=== PATIENT | male | born 1985 ===

== ENCOUNTER 2016-07-29 22:46 | Emergency (ER) | payer OTHER ==
[2016-07-29 22:53] VITALS: RESP 16
[2016-07-29] MEDS ORDERED: Alum-Mag Hydrox-Simethicone Susp (30 mL) PO STA (23:35)
[2016-07-29] MEDS ORDERED: Alum-Mag Hydrox-Simethicone Susp (30 mL) ONE (23:40)
--- NOTE | 2016-07-29 23:47 | ED PDOC ---
HPI: Abdomen Time Seen by Provider: 07/29/16 23:09 Chief Complaint (Nursing): Abdominal Pain Chief Complaint (Provider): abd pain History Per: Patient History/Exam Limitations: no limitations Onset/Duration Of Symptoms: Days (6) Severity: Moderate Location Of Pain/Discomfort: LUQ (LUQ worse), LLQ Associated Symptoms: Vomiting (x1 on Monday nonbilious nonbloody), Loss Of Appetite. denies: Fever, Chills, Nausea, Diarrhea, Back Pain, Chest Pain, Urinary Symptoms Exacerbating Factors: Food Alleviating Factors: None Past Medical History Reviewed: Historical Data, Nursing Documentation, Vital Signs Vital Signs: Last Vital Signs Temp 97.9 F 07/30/16 03:49 Pulse 75 07/30/16 03:49 Resp 16 07/30/16 03:49 BP 125/80 07/30/16 03:49 Pulse Ox 96 07/30/16 04:36 - Medical History PMH: No Chronic Diseases - Surgical History Surgical History: No Surg Hx - Family History Family History: States: No Known Family Hx - Social History Current smoker - smoking cessation education provided: No Alcohol: Social (every other weekend) Drugs: Denies - Home Medications Home Medications: Ambulatory Orders Medication Instructions Recorded Esomeprazole Magnesium [Nexium] 40 mg PO DAILY #28 ecc 07/30/16 - Allergies Allergies/Adverse Reactions: Allergies Allergy/AdvReac Type Severity Reaction Status Date / Time No Known Allergies Allergy Verified 07/29/16 22:50 Review of Systems ROS Statement: Except As Marked, All Systems Reviewed And Found Negative (and as per hpi) Gastrointestinal: Positive for: Nausea, Vomiting, Abdominal Pain. Negative for : Diarrhea, Constipation, Melena, Hematochezia, Hematemesis Genitourinary Male: Negative for: Dysuria, Frequency Physical Exam - Reviewed Nursing Documentation Reviewed: Yes Vital Signs Reviewed: Yes - Physical Exam Appears: Positive for: Non-toxic, In Acute Distress (mild painful distress) Head Exam: Positive for: ATRAUMATIC, NORMOCEPHALIC Skin: Positive for: Warm, Dry Eye Exam: Positive for: EOMI, PERRL ENT: Negative for: Pharyngeal Erythema, Tonsillar Exudate Neck: Positive for: Painless ROM, Supple Cardiovascular/Chest: Positive for: Regular Rate, Rhythm, Chest Non Tender. Negative for: Murmur Respiratory: Positive for: Normal Breath Sounds. Negative for: Wheezing Gastrointestinal/Abdominal: Positive for: Bowel Sounds, Soft, Tenderness (LUQ). Negative for: Mass, Distended, Guarding, Rebound Back: Positive for: Normal Inspection. Negative for: Vertebral Tenderness Extremity: Positive for: Normal ROM. Negative for: Pedal Edema Lymphatic: Negative for: Adenopathy Neurologic/Psych: Positive for: Alert. Negative for: Motor/Sensory Deficits - Laboratory Results Result Diagrams: 07/29/16 23:42 07/29/16 23:42 - ECG O2 Sat by Pulse Oximetry: 96 Disposition - Clinical Impression Clinical Impression: Abdominal pain - Disposition Disposition Time: 00:00 Condition: STABLE Prescriptions: Esomeprazole Magnesium [Nexium] 40 mg PO DAILY #28 ecc Print Language: GERMAN Patient Signed Over To: Jesus Guajardo Handoff Comments: Pending ER workup and reassessment
[2016-07-29 23:50] LABS: BASO % 0.4 % (0.0-2.0); EOS # 0.1 K/uL (0.0-0.7); EOS % 1.3 % (0.0-4.0); HEMATOCRIT 46.5 % (35.0-51.0); LYMPH # 3.1 K/uL (1.0-4.3); MEAN CELL VOLUME 87.4 fl (80.0-94.0); MEAN CORPUSCULAR HEMOGLOBIN 29.6 pg (27.0-31.0); MEAN CORPUSCULAR HGB CONC 33.9 g/dL (33.0-37.0); MEAN PLATELET VOLUME 8.6 fl (7.2-11.7); MONO # 0.8 K/uL (0.0-0.8); MONO % 8.1 % (0.0-10.0); NEUT # 5.3 K/uL (1.8-7.0); NEUT % 57.2 % (50.0-75.0); NRBC % 0.1 % (0.0-0.0); RED CELL DISTRIBUTION WIDTH 13.6 % (11.5-14.5); WHITE BLOOD COUNT 9.2 K/uL (4.8-10.8)
[2016-07-29 23:59] LABS: ALB/GLOB RATIO 1.4 (1.0-2.1); ALKALINE PHOSPHATASE 58 U/L (38-126); ALT/SGPT 325 U/L (21-72); AST/SGOT 116 U/L (17-59); BILIRUBIN,TOTAL 0.6 mg/dl (0.2-1.3); BLOOD UREA NITROGEN 21 mg/dl (9-20); CALCIUM 9.4 mg/dL (8.4-10.2); CARBON DIOXIDE 27 mmol/L (22-30); CHLORIDE 100 mmol/L (98-107); GFR AFRICAN-AMERICAN > 60; GLUCOSE,RANDOM 100 mg/dL (75-110); LIPASE 86 U/L (23-300); POTASSIUM 4.3 MMOL/L (3.6-5.0); SODIUM 139 mmol/l (132-148); TOTAL PROTEIN 8.2 G/DL (6.3-8.2)
--- NOTE | 2016-07-30 00:39 | ED PDOC ---
- Laboratory Results Result Diagrams: 07/29/16 23:42 07/29/16 23:42 - ECG O2 Sat by Pulse Oximetry: 96 Medical Decision Making Medical Decision Making: Patient s/o to this provider by Dr. Escalante at 0000 pending US and re-eval. 0208: US RUQ impression: No acute abnormality identified. Hepatomegaly and diffuse fatty infiltration of the liver. 0230: Patient reports improvement in symptoms and is stable for d/c. Dx: gastritis Rx: nexium F/U in the clinic in 2 days Scribe Attestation: Documented by Tash Milligan acting as a scribe for Jesus Guajardo MD. Provider Scribe Attestation: All medical record entries made by the Scribe were at my direction and personally dictated by me. I have reviewed the chart and agree that the record accurately reflects my personal performance of the history, physical exam, medical decision making, and the department course for this patient. I have also personally directed, reviewed, and agree with the discharge instructions and disposition. Disposition Counseled Patient/Family Regarding: Studies Performed, Diagnosis, Need For Followup, Rx Given - Clinical Impression Clinical Impression: Gastritis - POA Present On Arrival: None - Disposition Referrals: [facility] [Outside] Disposition: Routine/Home Disposition Time: 02:30 Condition: STABLE Prescriptions: Esomeprazole Magnesium [Nexium] 40 mg PO DAILY #28 ecc Instructions: Gastritis (ED) Print Language: LATVIAN
--- NOTE | 2016-07-30 02:08 | US ---
EXAM: US Abdomen Limited, Right Upper Quadrant CLINICAL HISTORY: 30 years old, male; Pain; Other: Ruq; Additional info: Abd pain lfts TECHNIQUE: Real-time ultrasound of the right upper quadrant with image documentation. EXAM DATE/TIME: 07/30/2016 12:11 AM COMPARISON: No relevant prior studies available. FINDINGS: Gallbladder: Within normal limits in appearance, without evidence of gallstones, significant gallbladder wall thickening, or pericholecystic fluid. Reportedly negative sonographic Whitmore's sign. Common bile duct: Does not appear abnormally dilated, measuring less than 6 mm in diameter. Liver: Demonstrates diffusely increased parenchymal echogenicity and poor acoustic penetration, compatible with diffuse fatty infiltration. Enlarged, measuring 21 cm in length. Normal flow seen in the main portal vein on color and Doppler imaging. Pancreas: Incompletely seen due to gas. Imaged portions appear unremarkable. Right kidney: Within normal limits in appearance. Measures 11.1 cm in length. No evidence of hydronephrosis. IMPRESSION: No acute abnormality identified. Hepatomegaly and diffuse fatty infiltration of the liver. See above for remaining findings.
[2016-07-30 03:49] VITALS: BP 125/80; PULSE 75; TEMP 97.9
[2016-07-30 04:36] VITALS: O2SAT 96
== END 2016-07-30 03:50 | disposition home or self-care (01) ==
LOC: H.ER 22:46
DX: K29.70 Gastritis, unspecified, without bleeding (principal); R10.12 Left upper quadrant pain